=== PATIENT | male | born 1950 | race Caucasian/White ===

== ENCOUNTER → 2016-06-23 | Outpatient (CLI) | payer BC ==
--- NOTE | 2016-06-25 04:24 | DI ---
LEFT LONG FINGER EXAM, 06/23/2016 7:57 AM: Clinical History: Pain in the left long finger. Previous Exam: None at this facility. 3 views are submitted. There is no acute soft tissue, osseous, or joint abnormality. Reading: Normal left long finger exam.
== END ==
LOC: ORTHO 09:07
PROVIDERS: ATTEND Orthopaedic Surgery
DX: M79.645 Pain in left finger(s) (principal); M65.332 Trigger finger, left middle finger
CPT/HCPCS: 73140

== ENCOUNTER 2016-06-30 10:49 | Day surgery (SDC) | payer BC ==
[~2016-06-30 10:49] MED LIST: LIDOCAINE W/ SODIUM BICARB 0.5 ML SYR ONE; Lactated Ringers 1,000 ML PRIMARY IV ONE; ceFAZolin Inj 2gm (Premix) 50 ML IV ONE
[2016-06-30] MEDS ORDERED: MIDAZOLAM 5 MG/1 ML ONE (11:45)
[2016-06-30] MEDS ORDERED: fentaNYL Inj 100 MCG/2 ML VIAL ONE (11:45)
[2016-06-30] MEDS ORDERED: BUPivacaine Inj 0.5% PF (5mg/ml) 10ml vial ONE (12:35)
[2016-06-30] MEDS ORDERED: SODIUM BICARBONATE 8.4% - 50 ML VIAL ONE (12:35)
[2016-06-30] MEDS ORDERED: ONDANSETRON 4 MG/2 ML VIAL IVP PRN (13:36)
[2016-06-30] MEDS ORDERED: NORMAL SALINE 10 ML SYRINGE FLUSH IVP PRN (13:36)
[2016-06-30] MEDS ORDERED: HYDROcodone-APAP 5 MG -325 MG TABLET PO PRN (13:36)
[2016-06-30] MEDS ORDERED: Lactated Ringers 1,000 ML PRIMARY IV SCH (13:45)
[2016-06-30 14:04] VITALS: RESP 16
[2016-06-30 14:07] VITALS: TEMP 98.2
== END 2016-06-30 13:50 | disposition home or self-care (01) ==
LOC: SDSC 10:49
PROVIDERS: ATTEND Orthopaedic Surgery
DX: M65.332 Trigger finger, left middle finger (principal)
CPT/HCPCS: 26055; J0690; J2704; J3010; J2250; J3490; J7120